=== PATIENT | female | born 1990 | race Caucasian/White ===

== ENCOUNTER 2023-10-04 15:17 | Emergency (ER) | payer MEDICAID, SELFPAY ==
[2023-10-04 15:18] VITALS: BP 117/68; PULSE 95; RESP 20; TEMP 37.3; O2SAT 98; BMI 23.0
[2023-10-04 15:23] VITALS: BP 117/68; PULSE 91; TEMP 37.3; O2SAT 99
--- NOTE | 2023-10-04 15:34 | PC.NURSE ---
DR SALMERON AT BEDSIDE
--- NOTE | 2023-10-04 15:39 | HMH.EDGENADL ---
Discharge Plan Disposition Patient Disposition: Home, Self-Care Prescriptions Prescriptions: New cefdinir 300 mg capsule 300 mg PO BID 10 Days Qty: 20 0RF Referrals Follow up/Referrals: Provider,Referral, [Primary Care Provider] - See instructions Activity Restrictions/Add. Instructions Additional Instructions/Restrictions: You have evidence of a kidney infection called pyelonephritis. No evidence of sepsis from her vital signs or historical standpoint. You may take 600 mg of ibuprofen and 650 mg of Tylenol 3 times a day as needed for body aches and fever. Please take your antibiotics as prescribed and complete even if you are feeling completely better within a few days. A urine culture has been sent I recommend you follow-up with your primary care doctor in 2 to 3 days if you are not improving or return to the emergency department any significant worsening of your symptoms. Clinical Impressions Clinical Impression: Pyelonephritis Discharge ED Provider: Miley Andrew General Adult HPI General Chief complaint: PAIN Stated complaint: possible uti Time Seen by Provider: 10/04/23 15:31 Mode of Arrival: Ambulatory Source of Information: Patient Limitations: No Limitations Description of Symptoms (Recalled from ER Triage Doc. by RN): Patient presents to ED with chills, low back pain, and frequent urination. Patient reports a UTI 1 month ago. History of Present Illness HPI narrative: Patient is a 33-year-old female presents today with chills feeling warm at home urinary frequency and back pain. Was diagnosed with urinary tract infection 1 month ago was treated with an antibiotic she is not sure the exact dose she believes that she completed about 7 days. Had significant improvement in those symptoms but they have returned. She has had several urinary tract infection in the past and states this feels similar. She has not had any Tylenol or ibuprofen today. No history of any type of anatomic abnormalities such as reflux etc. She has a history of possible POTS but no other significant past medical history. Related Data Previous Rx's Medication Instructions Recorded cefdinir 300 mg capsule 300 mg PO BID 10 days #20 caps 10/04/23 Allergies Allergy/AdvReac Type Severity Reaction Status Date / Time No Known Drug Allergies Allergy Unknown Verified 10/04/23 15:44 [NKDA] [facility] Disclaimer: The information contained in this section may have been updated after the patient was seen, as this information can be updated by other users. Social History Smoking Status: Never smoker alcohol intake: never current occupational status: other Travel in the last 8 weeks: None ROS Obtained: Yes All systems reviewed & no additional complaints except as documented Physical Exam General General appearance: alert and in no apparent distress Respiratory Respiratory exam: Present normal lung sounds bilaterally; Absent respiratory distress Cardiovascular Cardiovascular exam: Present regular rate and normal rhythm Abdominal Exam Abdominal exam: Present soft; Absent distention or tenderness Back Exam Back exam: Present CVA tenderness (L); Absent CVA tenderness (R) Neurological Exam Neurological exam: Present alert and oriented X3 Medical Decision Making [place] Inquiry Pt receiving controlled substance: No Vital Signs: 10/04/23 15:18 10/04/23 15:23 Temperature 99.1 F 99.1 F Temperature Source Oral Oral Pulse Rate 91 H Pulse Rate [Right Radial] 95 H Respiratory Rate 20 Blood Pressure 117/68 Blood Pressure [Right Arm] 117/68 Blood Pressure Mean [Right Arm] 84 Blood Pressure Source [Right Arm] Automatic Cuff Blood Pressure Position [Right Arm] Sitting 02 Sat by Pulse Oximetry 98 99 Oxygen Delivery Method Room Air Room Air Lab Data Lab results reviewed: Yes I reviewed the patient's lab results. Lab Results 10/04/23 15:19: Urine Color Yellow, Urine Appearance Clear, Urine pH 7.5, Ur Specific [place] 1.010, Urine Protein Trace, Urine Glucose (UA) Trace, Urine Ketones Negative, Urine Blood Negative, Urine Nitrate Positive, Urine Bilirubin 1+ A, Urine Urobilinogen 4.0, Ur Leukocyte Esterase Negative Orders (Tests/Meds): ED MEDICATIONS Discontinued Medications Generic Name Dose Route Start Last Admin Trade Name Miguelq PRN Reason Stop Dose Admin Acetaminophen 650 mg 10/04/23 15:37 10/04/23 15:46 Acetaminophen 325mg Tab PO 10/04/23 15:38 650 mg ONCE ONE Administration Cefdinir 300 mg 10/04/23 15:56 10/04/23 16:00 Cefdinir 300mg Capsule PO 10/04/23 15:57 300 mg ONCE ONE Administration ORDERS Category Date Time Status UA [Urinalysis and Microscopic] Stat Lab 10/04/23 15:19 Results Medical Decision Narrative: 33-year-old female here with left CVA tenderness subjective fevers at home with some chills but normal vital signs and normal exam today. Clinically this is most consistent with pyelonephritis. She did not have any sudden component to this I do not suspect a kidney stone or perinephric abscess at the moment. She is young and healthy very well-appearing should be a candidate for outpatient oral therapy. At the moment I do not believe blood cultures IV fluids IV antibiotics or lab test would change any management. Urinalysis is pending will give her first dose of antibiotics if it is positive for also will give her Tylenol and reassess. Reassessment 4:02 PM patient's vitals remained stable no evidence of sepsis clinically. She is been advised to take Tylenol and ibuprofen at home as needed for body aches and fevers she was given her first dose of antibiotics urinalysis was positive as was expected from historical standpoint. Urine culture was sent to return precautions and follow-up instructions discussed patient was discharged in stable condition. Critical Care Critical Care Time Critical Care Time: No
[2023-10-04 15:42] LABS: Microscopic, Urine URINE MICROSCOPIC (MICROSCOPIC)
[2023-10-04 15:45] LABS: Appearance,Urine CLEAR (Clear); Blood, Urine Negative (Negative); Color,Urine YELLOW (Yellow); Glucose,Urine (UA) TRACE (Negative); Ketones,Urine Negative (Negative); Leukocyte Esterase,Urine Negative (Negative); Nitrate,Urine POSITIVE (Negative); PH,Urine 7.5 (5.0-8.5); Protein,Urine TRACE (Negative)
[2023-10-04] MEDS: ACETAMINOPHEN 325MG TAB 650 MG PO (15:46)
[2023-10-04 15:47] LABS: Bilirubin,Urine 1+ (Negative)
--- NOTE | 2023-10-04 15:58 | PC.NURSE ---
DR SALMERON AT BEDSIDE TO UPDATE PT
[2023-10-04] MEDS: CEFDINIR 300MG CAPSULE 300 MG PO (16:00)
[2023-10-04 16:02] VITALS: BP 117/68; PULSE 90; RESP 18; TEMP 37.3; O2SAT 99
[2023-10-04 16:04] LABS: Bacteria,Urine Trace /lpf; RBC,Urine Occasional #/hpf (0-3); Squamous Epithelial Cell,Urine Occasional #/hpf (0-5)
== END 2023-10-04 16:05 | disposition home or self-care (01) ==
PROVIDERS: Emergency Provider Student in an Organized Health Care Education/Training Program
DX: N10 Acute pyelonephritis (principal); M54.59 Other low back pain; R35.0 Frequency of micturition
CPT/HCPCS: 81001; 99283